=== PATIENT | male | born 1965 | race African-American/Black ===

== ENCOUNTER 2016-09-06 20:42 | Emergency (ER) | payer SELFPAY ==
[~2016-09-06] VITALS: Ht 177.8 cm; Wt 97.5 kg
[2016-09-06 21:05] VITALS: BP 131/72
[2016-09-06] MEDS ORDERED: KETOROLAC TROMETH 60MG/2ML VIAL IM ONE (23:15)
== END 2016-09-07 01:08 | disposition home or self-care (01) ==
LOC: ER 20:56
DX: M54.5 Low back pain (principal); M25.561 Pain in right knee; Z76.0 Encounter for issue of repeat prescription; Z88.6 Allergy status to analgesic agent; Z88.8 Allergy status to other drugs, medicaments and biological substances
CPT/HCPCS: 96372; 99283; J1885